=== PATIENT | female | born 1970 | race Caucasian/White ===

== ENCOUNTER 2022-12-05 20:40 | Emergency (ER) | payer MEDICAID, OTHER ==
[~2022-12-05] VITALS: Ht 154.9 cm; Wt 52.2 kg
[2022-12-05] MEDS ORDERED: LORAZEPAM 1 MG TABLET ONE (21:08)
[2022-12-05] MEDS: LORAZEPAM 1 MG TABLET PO ONE (21:11)
[2022-12-05] MEDS ORDERED: LIDOCAINE 2% JEL UROJET 10 ML MM ONE (21:28)
[2022-12-05] MEDS: LIDOCAINE 2% JEL UROJET 10 ML MM ONE (21:51)
--- NOTE | 2022-12-05 22:15 | NUR ---
DR JAYY MARTINEZ.
--- NOTE | 2022-12-05 22:23 | NUR ---
ATTEMPTED F/C INSERTION WITH NO SUCCESS. DR PIERRE PAINTER AWARE.
[2022-12-05] MEDS ORDERED: diphenhydrAMINE HCL 25 MG CAPSULE ONE (22:25)
[2022-12-05] MEDS ORDERED: HYDROCODONE/APAP 5/325MG TABLET ONE (22:25)
--- NOTE | 2022-12-05 22:29 | NUR ---
IFC INSERTION RE-ATTEMPTED SEVERAL TIMES FAILED. DR JAY MADE AWARE. MENDOZA BAUTISTA AND GOYO ATTEMPTED TO REINSERT BUT FAILED.
[2022-12-05] MEDS: HYDROCODONE/APAP 5/325MG TABLET PO ONE (22:31)
[2022-12-05] MEDS: DIPHENHYDRAMINE HCL 12.5 MG/5 ML UDC PO ONE (22:31)
[2022-12-05] MEDS ORDERED: LIDOCAINE 2% 20 ML MDV ONE (22:58)
[2022-12-05] MEDS ORDERED: SULF1TAB48 PO (23:22)
--- NOTE | 2022-12-05 23:23 | NUR ---
CONSENT SIGNED BY PATIENT FOR SUPRAPUBIC CATHETER INSERTION. SUPRAPUBIC CATHETER INSERTED BY DR GONZALEZ UNDER LOCAL ANESTHESIA.
--- NOTE | 2022-12-05 23:40 | NUR ---
CHANGE UROBAG TO LEG BAG
--- NOTE | 2022-12-05 23:40 | NUR ---
Patient discharged to home in stable condition. Written and verbal after care instructions given. Patient verbalizes understanding of instruction.
--- NOTE | 2022-12-05 23:41 | NUR ---
Patient discharged to home in stable condition. Written and verbal after care instructions given. Patient verbalizes understanding of instruction.
[2022-12-05 23:42] VITALS: BP 126/79
== END 2022-12-05 23:43 | disposition home or self-care (01) ==
LOC: ER 21:01
DX: R33.9 Retention of urine, unspecified (principal); F32.A Depression, unspecified
CPT/HCPCS: 99284; 51702; Q0163 ×2; J3490 ×2; A6403 ×2

== ENCOUNTER 2023-01-06 13:39 | Emergency (ER) | payer OTHER ==
[~2023-01-06] VITALS: Ht 154.9 cm; Wt 47.6 kg
[~2023-01-06 13:39] MED LIST: SULF1TAB48 PO
--- NOTE | 2023-01-06 14:02 | NUR ---
DR MUNOZ AT BEDSIDE
--- NOTE | 2023-01-06 14:09 | NUR ---
URINE SAMPLE COLLECTED AND SENT TO LAB
[2023-01-06] MEDS ORDERED: CEPH500T PO (14:57)
[2023-01-06] MEDS ORDERED: IBUP-1953 PO (14:57)
--- NOTE | 2023-01-06 15:05 | NUR ---
Patient discharged to home in stable condition ambulating by self. Written and verbal after care instructions given. Patient verbalizes understanding of instruction.
[2023-01-06 15:06] VITALS: BP 115/72
[2023-01-06 15:08] LABS: BILIRUBIN,URINE NEGATIVE (NEGATIVE); COLOR,URINE YELLOW (YELLOW); LEUKOCYTE ESTERASE ,URINE 1+ (NEGATIVE); NITRITE, URINE NEGATIVE (NEGATIVE); PROTEIN,URINE TRACE mg/dl (NEGATIVE); UGLUCOSE NEGATIVE (NEGATIVE); UROBILINOGEN,URINE 0.2 EU/dL (0.2)
[2023-01-06 16:17] LABS: BACTERIA,URINE Few /HPF (None Seen); RBC,URINE 0-2 /HPF (0-2); SQUAMOUS EPITHELIAL CELL,UR Few /HPF (None Seen)
== END 2023-01-06 15:06 | disposition home or self-care (01) ==
LOC: ER 13:44
DX: T83.098A Other mechanical complication of other urinary catheter, initial encounter (principal); F32.A Depression, unspecified; Z79.899 Other long term (current) drug therapy
CPT/HCPCS: 81001; 87086-TC

== ENCOUNTER 2023-11-23 15:40 | Emergency (ER) | payer OTHER ==
[~2023-11-23] VITALS: Ht 154.9 cm; Wt 49.9 kg
[~2023-11-23 15:40] MED LIST changes: +CEPH500T PO; +IBUP-1953 PO
[2023-11-23] MEDS ORDERED: BACLOFEN (10 MG) 10 MG TABLET PO ONE (17:00)
[2023-11-23] MEDS ORDERED: BACLOFEN (10 MG) 10 MG TABLET ONE (17:05)
[2023-11-23 17:22] VITALS: BP 118/77; TEMP 98; O2SAT 100
== END 2023-11-23 17:23 | disposition home or self-care (01) ==
LOC: ER 15:43
DX: R33.9 Retention of urine, unspecified (principal); F32.A Depression, unspecified; Z79.899 Other long term (current) drug therapy